=== PATIENT | female | born 1990 | race Caucasian/White ===

== ENCOUNTER 2019-04-06 23:32 | Emergency (ER) | payer OTHER ==
[~2019-04-06] VITALS: Ht 162.6 cm; Wt 58.6 kg
[2019-04-06] MEDS ORDERED: MULTTAB20 PO (23:45)
[2019-04-06] MEDS ORDERED: UNIS25TA3 PO (23:45)
[2019-04-06] MEDS ORDERED: LORA-243 PO (23:45)
[2019-04-07] MEDS ORDERED: NS 1,000 ML IV ONE (00:15)
[2019-04-07 00:39] LABS: BASO % 0.3 % (0.0-1.0); EOS % 0.5 % (0.0-3.0); HEMATOCRIT 34.7 % (36.0-47.0); HEMOGLOBIN 11.7 g/dl (12.0-15.5); LYMPH # 0.6 10^3/uL (1.5-5.0); LYMPH % 7.4 % (24.0-44.0); MEAN CORPUSCULAR HEMOGLOBIN 30.8 pg (27.0-33.0); MEAN CORPUSCULAR HGB CONC 33.7 g/dl (32.0-36.5); MEAN CORPUSCULAR VOLUME 91.3 fl (80.0-96.0); MONO # 0.8 10^3/uL (0.0-0.8); MONO % 10.3 % (0.0-5.0); NEUTROPHILS # 6.1 10^3/uL (1.5-8.5); NEUTROPHILS % 80.2 % (36.0-66.0); PLATELET COUNT, AUTOMATED 184 10^3/uL (150-450); WHITE BLOOD COUNT 7.6 10^3/uL (4.0-10.0)
[2019-04-07 00:49] LABS: ALBUMIN 3.6 GM/DL (3.2-5.2); ALT/SGPT 19 U/L (12-78); BILIRUBIN,DIRECT < 0.1 MG/DL (0.0-0.2); BILIRUBIN,TOTAL 0.4 MG/DL (0.2-1.0); BLOOD UREA NITROGEN 7 MG/DL (7-18); CALCIUM LEVEL 9.2 MG/DL (8.5-10.1); CARBON DIOXIDE LEVEL 27 MEQ/L (21-32); CHLORIDE LEVEL 105 MEQ/L (98-107); CREATININE FOR GFR 0.49 MG/DL (0.55-1.30); GLOMERULAR FILTRATION RATE > 60.0 (>60); GLUCOSE, FASTING 81 MG/DL (70-100); LIPASE 128 U/L (73-393); POTASSIUM SERUM 3.4 MEQ/L (3.5-5.1); SODIUM LEVEL 139 MEQ/L (136-145); TOTAL PROTEIN 6.9 GM/DL (6.4-8.2)
--- NOTE | 2019-04-07 01:12 | REPVR ---
PROCEDURE INFORMATION: Exam: US Abdomen Limited, Right Upper Quadrant Exam date and time: 04/07/2019 12:56 AM Clinical history: 28 years old, female; Nausea; ; Additional info: Upper abd pain/n/v/d TECHNIQUE: Imaging protocol: Real-time ultrasound of the abdomen with image documentation. Examination was focused on the right upper quadrant. COMPARISON: No relevant prior studies available. FINDINGS: Liver: Unremarkable. Gallbladder: No gallstones. No gallbladder wall thickening or pericholecystic fluid. Negative sonographic Davison's sign, as per the performing director of corporate communications. Common bile duct: No stones. No ductal dilatation. Pancreas: Unremarkable as visualized. Right kidney: No mass. No definite stones. No hydronephrosis. Uterus: Viable intrauterine with a heart rate of 153 beats per minute, not fully evaluated on this examination. IMPRESSION: 1. No acute sonographic findings. 2. Additional findings, as above. Electronically signed by: Zackary Ahmadi On 04/07/2019 01:11:48 AM
[2019-04-07] MEDS ORDERED: FAMOTIDINE 20 MG TAB PO ONE (01:30)
[2019-04-07] MEDS ORDERED: RANI1TAB38 PO (01:40)
[2019-04-07 01:54] VITALS: BP 108/59
== END 2019-04-07 01:56 | disposition home or self-care (01) ==
LOC: M ED 23:32
DX: O99.89 Other specified diseases and conditions complicating pregnancy, childbirth and the puerperium (principal); R10.13 Epigastric pain; Z79.899 Other long term (current) drug therapy

== ENCOUNTER 2019-10-04 07:08 | Inpatient (IN) | payer OTHER ==
[2019-10-04] VITALS (14 sets, daily range): BP systolic 94–130; BP diastolic 53–81
[~2019-10-04] VITALS: Ht 162.6 cm; Wt 70.6 kg
[~2019-10-04 07:08] MED LIST: LORA-243 PO; MULTTAB20 PO; RANI1TAB38 PO; UNIS25TA3 PO
[2019-10-04 08:45] LABS: HEMATOCRIT 37.4 % (36.0-47.0); HEMOGLOBIN 12.7 g/dl (12.0-15.5); MEAN CORPUSCULAR VOLUME 94.2 fl (80.0-96.0); PLATELET COUNT, AUTOMATED 123 10^3/uL (150-450); RED BLOOD COUNT 3.97 10^6/uL (4.00-5.40)
[2019-10-04] MEDS ORDERED: miSOPROStol 25 MCG 1/4 TAB (S0191) PO ONE (09:00)
[2019-10-04] MEDS ORDERED: LACTATED RINGER'S 1000 ML IV ONE (09:00)
--- NOTE | 2019-10-04 10:37 | HPE ---
DATE OF ADMISSION: 10/04/2019 This lady is a 29-year-old, 1, para 0, last menstrual period (LMP) 12/20/2018, expected date of confinement (EDC) 10/14/2019, at 41 weeks of gestation for induction of labor. Risk factors are she is Rh negative, has migraines and had a delivery at 20 weeks and was steroid complete at 24 weeks. Labs: A negative. HIV negative. Hepatitis negative. RPR negative. Rubella immune. Varicella nonimmune. Pap normal. Urine negative. Gonorrhea and chlamydia are negative. 1-hour glucose 131. GBS is negative. Blood pressure 127/75. Respirations 18. Pulse 74. Temperature 97.0. No urine is available. On examination, no acute distress. Symphysis fundus height is 40, vertex, occiput anterior (OA). Four quadrant bowel sounds. Posterior cervix, 1-2 cm, soft, 50%, -3 station. Plan of management is to use Cytotec 25 by mouth. She is showing some contractions on her monitor with a category one strip, normal baseline and moderate variability. Will hydrate her as needed and epidural on an as needed basis. The rest the examination unremarkable. She is normocephalic, atraumatic. Neck: Full range of motion. Pupils equal and reactive to light. Distal pulses symmetric. No evidence of the deep vein thrombosis (DVT), pulmonary embolus (PE) or superficial phlebitis. Chest is clear bilaterally bases. No wheezes or rhonchi. No CVA tenderness. She has no rashes, lesions or pruritus. No arthralgia or myalgia. No complaint of joint pain. No complaint cough, wheeze, shortness of breath or dyspnea on exertion. She has no bruising. No bleeding. Neuro complete. No urgency or frequency. No nausea, vomiting, diarrhea or constipation. No diabetic issues. No heat or cold issues. NUTRITION AIDE history is unremarkable. No sexually transmitted diseases (STDs). Past medical and surgical unremarkable. Family history is noncontributory. She does not smoke, drink or abuse drugs. She is to [employer]. No domestic violence. We discussed the consent for vaginal delivery which is through the vagina with possible assistance of forceps or vacuum devices if needed for maternal or indications. Vacuum or forceps are devices that can assist with vaginal delivery when normal pushing efforts cannot achieve delivery on their own or when delivery is needed in an emergency for baby's well-being. Medications may be required to induce or augment labor in order to achieve vaginal delivery. An episiotomy may be required to help baby deliver vaginally. You may also require repair of any lacerations or tears of the vagina or vulva that are caused by vaginal delivery. In some cases, emergencies arise that require emergency section. The provider will discuss them with you and they are only done for clinical indications. The risks of vaginal delivery include but are not limited to bleeding, infection, injury to the vagina or pelvic structures, injury to baby, damage to the uterus, reaction to anesthesia, uterine rupture, risk of hysterectomy for life-threatening bleeding issues, or . Medications used to augment may cause increased risk of delivery, a hysterectomy, hemorrhage, or rate abnormalities requiring an emergency section. Additional risks for the baby using forceps or vacuum include scratches, hematomas of the head and intracranial bleed. The patient expressed understanding of all the same. Expressed wish to continue. She is sad in the fact that her is in quarantine because he has just returned from [place]; however, we will be skyping with him in order to visualize the delivery. The patient is safe to proceed. We did a 40-minute discussion. All questions were answered.
[2019-10-04] MEDS ORDERED: miSOPROStol 50 MCG 1/2 TAB (S0191) PO ONE (15:00)
[2019-10-04] MEDS: LR 1,000 ML IV SCH ×2 (15:10→23:20)
--- NOTE | 2019-10-04 15:15 | IPN ---
DATE: 10/04/2019 Milli had 25 mg of misoprostol. It is now 4 hours later. Examination of her cervix, she is a fingertip but at 70% effaced, -3 station, still very posterior, category 1 strip. We are planning on using 50 mg by mouth times one dose. Hopefully this will negotiate her cervix for a Simon bulb and Pitocin in 4 hours reassessment. Category 1 presently.
[2019-10-04] MEDS ORDERED: OXYTOCIN DRIP 30 UNITS in IV 1 EA IV SCH (20:15)
--- NOTE | 2019-10-04 20:17 | IPN ---
DATE: 10/04/2019 This lady is a 29-year-old 1, para 0 who was admitted for induction of labor. She had two lots of Cytotec and was due for a third dose. She was having some contractions. Category one strip moderate in intensity. On examination, she now presents as 70% effaced, 1-2 cm soft and a -2 station. We planned on using a Cook's catheter and Pitocin. We explained the mechanism of action of the Cook's catheter and the Pitocin. The patient expressed understanding. All questions were answered. 20-minute discussion. Our next plan is when the Cook's catheter falls out, epidural in place and artificial rupture of membranes (AROM) will be done and anticipate further progress. Safe to proceed.
[2019-10-05] VITALS (46 sets, daily range): BP systolic 87–179; BP diastolic 51–101
[2019-10-05] MEDS ORDERED: BUTORPHANOL 2 MG/ML INJ (J0595) IV ONE (03:00)
[2019-10-05] MEDS ORDERED: PROMETHAZINE INJ 25 MG/ML VIAL (J2550) IV ONE (03:00)
[2019-10-05] MEDS ORDERED: FENTANYL 2MCG/ML ROPIVACAINE 0.2% IN 0.9% NACL 100ML IVBAG As Ordered ONE ×2 (06:00→14:57)
[2019-10-05 06:11] LABS: HEMATOCRIT 35.5 % (36.0-47.0); HEMOGLOBIN 12.2 g/dl (12.0-15.5); MEAN CORPUSCULAR HEMOGLOBIN 32.6 pg (27.0-33.0); MEAN CORPUSCULAR HGB CONC 34.4 g/dl (32.0-36.5); MEAN CORPUSCULAR VOLUME 94.9 fl (80.0-96.0); PLATELET COUNT, AUTOMATED 107 10^3/uL (150-450); RED BLOOD COUNT 3.74 10^6/uL (4.00-5.40); WHITE BLOOD COUNT 12.7 10^3/uL (4.0-10.0)
[2019-10-05] MEDS ORDERED: REFRIGERATOR IV KEYS XX PRN (07:15)
[2019-10-05] MEDS ORDERED: EPIDURAL/PCA KEYS XX PRN (07:15)
[2019-10-05] MEDS ORDERED: ONDANSETRON 4MG/2ML VIAL (J2405) IV PRN (07:15)
[2019-10-05] MEDS ORDERED: NALOXONE INJ 0.4 MG/1 ML VIAL (J2310) IV PRN (07:15)
[2019-10-05] MEDS ORDERED: diphenhydrAMINE 50MG/ML VIAL (J1200) IV PRN (07:15)
[2019-10-05] MEDS ORDERED: EPIDURAL COMMENT XX SCH (07:15)
[2019-10-05] MEDS ORDERED: LACTATED RINGER'S 1000 ML IV PRN (07:15)
[2019-10-05] MEDS: LR 1,000 ML IV SCH ×3 (07:37→18:00)
[2019-10-05] MEDS: FENTANYL/ROPIVACAINE/NACL BAG 100 ML EPIDURAL SCH ×2 (07:38→15:00)
[2019-10-05] MEDS: ePHEDrine SULFATE 25 MG/5 ML(5MG/ML) SYRINGE IV PRN ×3 (08:18→10:06)
--- NOTE | 2019-10-05 09:44 | IPNPDOC ---
Obstetrical Progress Note Date of Service Oct 05, 2019 Subjective Received report at board sign out from Dr. Edmondson and assumed care of 29yo at 41+2wks who is here in LND undergoing IOL for post dates. She was admitted on [id number] at 41+1wks; she received 2x doses of cytotec, CRB (out), and started on pitocin last night around 0930. She is comfortable with an epidural in place. Pt currently denies any concerns, denies VB; she states she cannot feel movement because of the epidural. To note, her platelets are 107, down from 123 at admission. Her BPs are normotensive, no s/sx of Pre-E. She is here alone d/t her spouse previously returning from a deployment and on mandatory quarantine. She has the ability to FaceTime him during the delivery if desired. Objective O: VSS, BP normotensive, afebrile FHR 135, moderate variability, No accels or decels CTX by [place] q 2-3.5 Pitocin running at 8mu/min VE deferred; last exam at 0730 was 6/80/-1 Laboratory Tests 10/05/19 05:55 Vital Signs Date Time Temp Pulse Resp B/P (MAP) Pulse Ox O2 Delivery O2 Flow Rate FiO2 10/05/19 08:43 79 16 109/57 (74) 10/05/19 07:17 98.8 98 Room Air Assessment and Plan Status: Reassuring Group B Streptococcus: Negative Anticipate: Vaginal Delivery Additional Comments A: 29yo at 41+2wks undergoing IOL for post dates. Category I FHT. P: CEFM x2 Continue pitocin per low dose protocol PO and IV hydration Frequent repositioning Reassess labor progress around 1200 Consult with OB as indicated Anticipate PANCHO BEAN CNM Oct 05, 2019 09:44
--- NOTE | 2019-10-05 11:45 | IPNPDOC ---
Obstetrical Progress Note Date of Service Oct 05, 2019 Subjective In room for labor assessment. Pt consents for cervical exam; chaperoned by QUEENIE Schuster. Pt denies any concerns at this time; denies feeling pain or contractions. Objective O: VSS, BP normotensive BP previously noted to be lower (87-98/50s) and FHR was minimal - intervenations received (LR bolus, 10L O2 via NRB, ephedrine administered by RN, epidural reduced to 8). FHR returned to baseline and recovered well; no late deceleration noted FHR now 135, moderate variability, + accels, early and intermittent variable decelerations (param >100) CTX by TOCO q2-3 minutes VE: C/C/0 Vital Signs Date Time Temp Pulse Resp B/P (MAP) Pulse Ox O2 Delivery O2 Flow Rate FiO2 10/05/19 10:11 71 104/57 (73) 10/05/19 10:03 98.1 18 10/05/19 07:17 98 Room Air Assessment Heart Rate Tracing: Category II Sterile Vaginal Examination Postion/Presentation: Cephalic presentation Assessment and Plan Status: Reassuring Group B Streptococcus: Negative Anticipate: Vaginal Delivery Additional Comments A: 29yo at 41+2wks, PDIOL, now entering into Second Stage. Category II FHT d/t intermittent variables - interventions ongoing. P: Allow for passive descent x1-2 hours CEFM x2 Continue resuscitative interventions Continue Pitocin Consult with OB if indicated Anticipate PANCHO BEAN CNM Oct 05, 2019 11:45
[2019-10-05] MEDS ORDERED: OXYTOCIN DRIP 30 UNITS in IV 1 EA IV SCH (17:54)
[2019-10-05] MEDS ORDERED: MOM 30ML SUSPENSION UDC PO PRN (18:00)
[2019-10-05] MEDS ORDERED: IBUPROFEN 600 MG TAB PO PRN (18:00)
[2019-10-05] MEDS ORDERED: MEASLES,MUMPS,RUBELLA VACCINE INJ (MMR-II) (90707) SC SCH (18:00)
[2019-10-05] MEDS ORDERED: ACETAMINOPHEN TAB 650MG DOSE (2X325MG) PO PRN (18:00)
[2019-10-05] MEDS ORDERED: LIDOCAINE 1% MDV 20ML VIAL INFIL ONE (18:15)
--- NOTE | 2019-10-05 18:15 | DNPDOC ---
[facility] Delivery Note Delivery Note DATE OF DELIVERY: 05 October 2019 PREDELIVERY DIAGNOSIS: 41+2 weeks gestation, PDIOL, Labor. POST DELIVERY DIAGNOSIS: Delivered. PROCEDURE: Spontaneous Vaginal Delivery SUPERVISOR DRAPERY HANGING: ELZA Bean ANESTHESIA: Epidural; 1% Lidocaine for repair ESTIMATED BLOOD LOSS: 250mL. FINDINGS: 8lbs 14oz (4020g), Male infant, 9/9, loose body cord. DELIVERY SUMMARY: Milli is a 29yo G1 now P1001 who was admitted for PDIOL at 41+1wks on [id number]. She was complete at 1126 on 05 October 2019 and started pushing at 1247 (after laboring down). Pt had a very dense epidural and was slow to progress. Fetus tolerated pushing well with minimal intervention. She pushed for > [address] Ordonez was notified of time of pushing and requested for her to come to the bedside. Pt continued to push and once was finally and remaining in position, Dr. Ordonez performed Rigtgen's maneuver to assist in delivery of head. I took over remainder of deliver once head moved into a better position. head delivered ISABELLE and restituted to LOT. Right anterior shoulder delivered with ease, followed by left posterior shoulder, then remainder of body delivered to maternal abdomen where he was dried and stimulated; strong, lusty cry. Body cord was loosed and easily reduced. Once cord stopped pulsating, clamped x2 and cut by myself. Placenta delivered spontaneously and appeared intact, 3VC. Fundus firm at U-2, EBL 250mL. Upon inspection of vagina, perineum and cervix, complicated 2nd degree laceration noted and repaired with the assistance of Dr. Ordonez with 0 Vicryl and 3-0 v icryl; Small right labial repaired with 4-0 vicryl. Pt's labia swollen; reeder catheter replaced and will be removed on [id number] in the AM; Sitz baths TID, motrin, and ice packs recommended for swelling. Pt and bonding well; FOB in Quarantine, but was able to FaceTime during delivery. Anticipate uncomplicated PP course. PANCHO BEAN CNM Oct 05, 2019 18:15
[2019-10-05] MEDS: IBUPROFEN 800 MG TAB PO PRN (18:35)
[2019-10-05] MEDS: DOCUSATE SODIUM 100 MG CAP PO SCH (20:52)
[2019-10-06] MEDS: ACETAMINOPHEN 500 MG TAB PO PRN ×3 (00:48→15:14)
[2019-10-06] MEDS: IBUPROFEN 800 MG TAB PO PRN ×3 (02:55→18:22)
[2019-10-06 05:15] VITALS: BP 104/62
[2019-10-06] MEDS: DIBUCAINE 1% OINTMENT 30GM TOP PRN ×2 (06:24→15:14)
[2019-10-06 06:40] LABS: HEMATOCRIT 32.5 % (36.0-47.0); HEMOGLOBIN 11.1 g/dl (12.0-15.5); MEAN CORPUSCULAR HEMOGLOBIN 32.9 pg (27.0-33.0); MEAN CORPUSCULAR HGB CONC 34.2 g/dl (32.0-36.5); MEAN CORPUSCULAR VOLUME 96.4 fl (80.0-96.0); PLATELET COUNT, AUTOMATED 107 10^3/uL (150-450); RED BLOOD COUNT 3.37 10^6/uL (4.00-5.40); WHITE BLOOD COUNT 13.8 10^3/uL (4.0-10.0)
--- NOTE | 2019-10-06 08:29 | IPNPDOC ---
Progress Note Date of Service: Oct 06, 2019 Day#: 1 Progress Note SUBJECT: Milli is a 29yo G1 now P1001 s/p at 41+2 weeks gestation on [id number] at 1628; male infant weighed 4020g; Complicated 2nd degree perineal laceration with extensive labial swelling. Her pain is well controlled with motrin and tylenol; bleeding is minimal, labial swelling still present, but less than yesterday, reeder catheter in place. without issue. Tolerating regular diet. Minimal ambulation d/t labial swelling, but desires to get up to shower; SCDs on at this time. She is requesting Claritin for allergies. OBJECTIVE: VSS, afebrile, good UOP via reeder catheter Pain well controlled Fundus firm at U-2 Minimal lochia Labia with moderate swelling, adequate reduction overnight; no new bruising present ASSESSMENT: PP Day #1, normal involution, Stable, labial swelling reducing as e xpected, progressing well. Exclusively . PLAN: 1. Routine PP Care 2. Tylenol and Motrin for pain. 3. Encourage breast feeding and ambulation. 4. Remove reeder catheter 5. Anticipate discharge on PP Day #2 6. Claritin ordered for seasonal allergies VS, I&O, 24H, Fishbone Vital Signs/I&O Vital Signs Date Time Temp Pulse Resp B/P (MAP) Pulse Ox O2 Delivery O2 Flow Rate FiO2 10/06/19 07:15 Room Air 10/06/19 05:15 97.8 83 20 104/62 (76) 10/05/19 07:17 98 I&O- Last 24 Hours up to 6 AM 10/06/19 06:00 Intake Total 5806 ml Output Total 5330 ml Balance 476 ml Laboratory Data 24H LABS Laboratory Tests 2 10/06/19 06:19: Nucleated Red Blood Cells % (auto) 0.0 CBC/BMP Laboratory Tests 10/06/19 06:19 PANCHO BEAN CNM Oct 06, 2019 08:29
[2019-10-06] MEDS: DOCUSATE SODIUM 100 MG CAP PO SCH ×2 (08:36→20:20)
[2019-10-06] MEDS: PRENATAL VITAMINS CHEWABLE TABLET PO SCH (08:36)
[2019-10-06] MEDS: LORATADINE 10 MG TAB PO SCH (09:24)
[2019-10-06 09:41] VITALS: BP 124/55
[2019-10-06 18:00] VITALS: BP 108/65
[2019-10-07] MEDS: IBUPROFEN 800 MG TAB PO PRN ×2 (02:47→15:15)
[2019-10-07 06:00] VITALS: BP 102/63
[2019-10-07] MEDS ORDERED: IBUP80TA PO (08:36)
[2019-10-07] MEDS ORDERED: DOCU100C16 PO (08:36)
[2019-10-07] MEDS ORDERED: DIBU10OI TOP (08:36)
--- NOTE | 2019-10-07 08:50 | DSES ---
DATE OF ADMISSION: 10/04/2019 DATE OF DISCHARGE: 29-year-old, 1, now para 1 was admitted induction of labor at 40 and 2 weeks of gestation, had a spontaneous vaginal delivery live male infant weighing 8 pounds 14 ounces (4020 grams) of 9 and 9 at one and five minutes respectively. She has a little first-degree tear, which was oversewn in the usual fashion with local anesthetic. Her admitting hemoglobin was 12.7, hematocrit 37.4, and platelets are 123. Her discharge hemoglobin 11.1, hematocrit 32.5, and platelets are 107. Vital sign on discharge, her blood pressure was 102/63, respirations 15, pulse 72 and temperature is 98.7. The rest examination unremarkable. She is normocephalic, atraumatic. Neck full range of motion. Pupils equal and reactive to light. Distal pulses symmetric. No evidence of deep venous thrombosis (DVT), pulmonary embolism (PE), or superficial phlebitis. Chest is clear bilaterally to bases. No wheezes or rhonchi. No costovertebral angle (CVA) tenderness. Abdomen soft. Uterus two below. Lochia is moderate. Four quadrant bowel sounds are noted. Perineum is healing. No rashes, lesions or pruritus. No arthralgia or myalgia. No complaint of joint pain. No complaint of cough, wheeze, shortness of breath or dyspnea on exertion. She has no nausea, vomiting, diarrhea or constipation. No frequency. No urgency. In summary, we have a term gestation delivered a live male . Discharge followup in the office at 6 weeks , and medications were dispensed at [facility]. All questions were answered. 20 minute discussion.
[2019-10-07] MEDS: LORATADINE 10 MG TAB PO SCH ×2 (09:00→09:23)
[2019-10-07] MEDS: DOCUSATE SODIUM 100 MG CAP PO SCH (09:00)
[2019-10-07] MEDS: PRENATAL VITAMINS CHEWABLE TABLET PO SCH (09:00)
[2019-10-07] MEDS: ACETAMINOPHEN 500 MG TAB PO PRN (09:38)
== END 2019-10-07 16:58 | disposition home or self-care (01) | DRG 807 ==
LOC: M LDI 07:08 → M OBS 10-05 22:05
PROVIDERS: ADMIT Obstetrics & Gynecology; ATTEND Obstetrics & Gynecology
PROC: 3E0DXGC Introduction of Other Therapeutic Substance into Mouth and Pharynx, External Approach (ICD-10-PCS; 2019-10-04)
PROC: 3E033VJ Introduction of Other Hormone into Peripheral Vein, Percutaneous Approach (ICD-10-PCS; 2019-10-04)
PROC: 10E0XZZ Delivery of Products of Conception, External Approach (ICD-10-PCS; principal; 2019-10-05)
PROC: 0KQM0ZZ Repair Perineum Muscle, Open Approach (ICD-10-PCS; 2019-10-05)
DX: O48.0 Post-term pregnancy (principal); Z37.0 Single live birth; Z3A.41 41 weeks gestation of pregnancy; Z87.51 Personal history of pre-term labor; O69.82X0 Labor and delivery complicated by other cord entanglement, without compression, not applicable or unspecified; O70.1 Second degree perineal laceration during delivery

== ENCOUNTER → 2022-02-09 | Outpatient (REF) | payer OTHER ==
[~2022-02-09] MED LIST changes: +DIBU28OI2 TOP; +DOCU100C16 PO; +IBUP80TA PO
[2022-02-09 21:47] LABS: APPEARANCE, URINE MANUAL CLEAR (CLEAR)
[2022-02-09 21:48] LABS: BILIRUBIN, URINE MANUAL NEGATIVE (NEGATIVE); BLOOD URINE MANUAL NEGATIVE (NEGATIVE); COLOR, URINE MANUAL YELLOW (YELLOW); GLUCOSE, URINE (UA) MANUAL NEGATIVE (NEGATIVE); KETONE, URINE MANUAL NEGATIVE (NEGATIVE); LEUKOCYTE ESTERASE, URINE MAN TRACE (NEGATIVE); NITRITE, URINE MANUAL NEGATIVE (NEGATIVE); PROTEIN, URINE MANUAL NEGATIVE (NEGATIVE); UROBILINOGEN, URINE MANUAL NORMAL (NORMAL)
[2022-02-09 22:10] LABS: RBC, URINE NONE SEEN /hpf (0-3)
[2022-02-09 22:11] LABS: BACTERIA, URINE SMALL AMOUNT; HYALINE CAST, URINE NONE SEEN /lpf (0-1); SQUAMOUS EPITHELIAL CELL URINE MOD AMOUNT /hpf (SMALL AMT)
== END ==
LOC: M LAB REF 21:14
PROVIDERS: ATTEND Physician Assistant Medical
DX: N39.0 Urinary tract infection, site not specified (principal)

== ENCOUNTER → 2022-05-05 | Outpatient (REF) | payer OTHER ==
[2022-05-05 23:14] LABS: APPEARANCE, URINE MANUAL CLEAR (CLEAR); COLOR, URINE MANUAL YELLOW (YELLOW)
[2022-05-05 23:15] LABS: BILIRUBIN, URINE MANUAL NEGATIVE (NEGATIVE); BLOOD URINE MANUAL NEGATIVE (NEGATIVE); GLUCOSE, URINE (UA) MANUAL NEGATIVE (NEGATIVE); KETONE, URINE MANUAL NEGATIVE (NEGATIVE); LEUKOCYTE ESTERASE, URINE MAN TRACE (NEGATIVE); NITRITE, URINE MANUAL NEGATIVE (NEGATIVE); PROTEIN, URINE MANUAL NEGATIVE (NEGATIVE); UROBILINOGEN, URINE MANUAL NORMAL (NORMAL)
[2022-05-05 23:22] LABS: BACTERIA, URINE SMALL AMOUNT; HYALINE CAST, URINE NONE SEEN /lpf (0-1); RBC, URINE NONE SEEN /hpf (0-3); SQUAMOUS EPITHELIAL CELL URINE SMALL AMOUNT /hpf (SMALL AMT)
== END ==
LOC: M LAB REF 22:52
PROVIDERS: ATTEND Physician Assistant Medical
DX: N39.0 Urinary tract infection, site not specified (principal)

== ENCOUNTER → 2023-08-07 | Outpatient (CLI) | payer OTHER ==
[2023-08-07 17:18] LABS: BASO % 0.5 % (0.0-1.0); EOS # 0.1 10^3/uL (0.0-0.5); EOS % 1.5 % (0.0-3.0); HEMATOCRIT 39.5 % (36.0-47.0); HEMOGLOBIN 12.5 g/dl (12.0-15.5); LYMPH # 1.6 10^3/uL (1.5-5.0); LYMPH % 24.1 % (24.0-44.0); MEAN CORPUSCULAR HEMOGLOBIN 29.3 pg (27.0-33.0); MEAN CORPUSCULAR HGB CONC 31.6 g/dl (32.0-36.5); MEAN CORPUSCULAR VOLUME 92.7 fl (80.0-96.0); MONO # 0.6 10^3/uL (0.0-0.8); MONO % 8.4 % (2.0-8.0); NEUTROPHILS # 4.3 10^3/uL (1.5-8.5); PLATELET COUNT, AUTOMATED 280 10^3/uL (150-450); RED BLOOD COUNT 4.26 10^6/uL (4.00-5.40); WHITE BLOOD COUNT 6.6 10^3/uL (4.0-10.0)
[2023-08-07 17:48] LABS: ALBUMIN 4.1 G/DL (3.2-5.2); ALKALINE PHOSPHATASE 49 U/L (46-116); ALT/SGPT < 9 U/L (7.0-40); AST/SGOT < 8 U/L (<34); BILIRUBIN,TOTAL 0.5 MG/DL (0.3-1.2); BLOOD UREA NITROGEN 10 MG/DL (9-23); CALCIUM LEVEL 9.6 MG/DL (8.5-10.1); CARBON DIOXIDE LEVEL 29 MMOL/L (20-31); CHLORIDE LEVEL 104 MMOL/L (98-107); CREATININE FOR GFR 0.57 MG/DL (0.55-1.30); GLOMERULAR FILTRATION RATE > 60.0 (>60); GLUCOSE, FASTING 81 MG/DL (60-100); IRON (FE) 126 UG/DL (50-170); PERCENT SATURATION 47.7 % (13.2-45.0); SODIUM LEVEL 138 MMOL/L (136-145); TOTAL IRON BINDING CAPACITY 264 UG/DL (250-425); TOTAL PROTEIN 6.8 G/DL (5.7-8.2)
[2023-08-07 17:53] LABS: THYROID STIMULATING HORMONE 1.087 uIU/ML (0.55-4.78)
[2023-08-07 17:54] LABS: FOLATE 18.77 NG/ML (>5.4)
[2023-08-07 17:55] LABS: VITAMIN B12 LEVEL 311 PG/ML (211-911)
== END ==
LOC: M WUC 10:54
PROVIDERS: ATTEND Nurse Practitioner Adult Health
DX: D50.9 Iron deficiency anemia, unspecified (principal); R53.83 Other fatigue; R10.13 Epigastric pain

== ENCOUNTER → 2024-02-02 | Outpatient (REF) | payer OTHER | LOC: M LAB REF 11:30 | PROVIDERS: ATTEND Nurse Practitioner Adult Health | DX: R10.13 Epigastric pain (principal) ==

== ENCOUNTER → 2024-03-04 | Outpatient (CLI) | payer OTHER | LOC: M LAB 09:09 | PROVIDERS: ATTEND Nurse Practitioner Adult Health | DX: R19.7 Diarrhea, unspecified (principal) ==

== ENCOUNTER → 2024-05-10 | Outpatient (CLI) | payer OTHER | LOC: M WHC 08:39 | PROVIDERS: ATTEND Obstetrics & Gynecology | DX: N80.9 Endometriosis, unspecified (principal); Z97.5 Presence of (intrauterine) contraceptive device ==

== ENCOUNTER 2024-05-31 07:45 | Day surgery (SDC) | payer OTHER ==
[~2024-05-31] VITALS: Ht 162.6 cm; Wt 58.1 kg
[~2024-05-31 07:45] MED LIST changes: +BRIN10TA4 PO; +MAGN250T7 PO; +THERTAB52 PO
[2024-05-31 09:36] VITALS: TEMP 97.5
[2024-05-31 09:51] VITALS: BP 110/53; O2SAT 100
== END 2024-05-31 10:05 | disposition home or self-care (01) ==
LOC: M OPP 07:45
PROVIDERS: ATTEND Surgery
DX: R10.13 Epigastric pain (principal); K31.A0 Gastric intestinal metaplasia, unspecified; K20.90 Esophagitis, unspecified without bleeding; K44.9 Diaphragmatic hernia without obstruction or gangrene; F41.9 Anxiety disorder, unspecified; Z79.899 Other long term (current) drug therapy

== ENCOUNTER → 2024-08-15 | Outpatient (REF) | payer OTHER | LOC: M LAB REF 16:27 | PROVIDERS: ATTEND Nurse Practitioner Family | DX: R30.0 Dysuria (principal) ==